=== PATIENT | female | born 1970 | race Caucasian/White ===

== ENCOUNTER 2020-05-10 08:36 | Outpatient (CLI) | payer OTHER ==
[2020-05-10] MEDS ORDERED: ALBUTEROL 2.5 MG/3 ML NEBU IH ONE (09:16)
== END 2020-05-10 08:37 | disposition home or self-care (01) ==
LOC: PF 08:36
PROVIDERS: ATTEND Internal Medicine
DX: Z02.71 Encounter for disability determination (principal); J45.909 Unspecified asthma, uncomplicated; E03.9 Hypothyroidism, unspecified
CPT/HCPCS: 94060; 94640; A9270